=== PATIENT | male | born 1950 | race Two or more races ===

== ENCOUNTER 2019-05-10 09:00 | Outpatient (CLI) | payer MEDICARE | END 2019-05-10 23:59 | disposition home or self-care (01) | LOC: MSC 09:00 | PROVIDERS: ATTEND Anesthesiology | DX: M51.26 Other intervertebral disc displacement, lumbar region (principal); M47.27 Other spondylosis with radiculopathy, lumbosacral region; M40.299 Other kyphosis, site unspecified; M79.2 Neuralgia and neuritis, unspecified; G89.4 Chronic pain syndrome; M79.606 Pain in leg, unspecified; I10 Essential (primary) hypertension; E13.40 Other specified diabetes mellitus with diabetic neuropathy, unspecified; Z79.4 Long term (current) use of insulin; Z79.84 Long term (current) use of oral hypoglycemic drugs ==

== ENCOUNTER 2019-06-07 09:15 | Outpatient (CLI) | payer MEDICARE | END 2019-06-07 23:59 | disposition home or self-care (01) | LOC: MSC 09:15 | PROVIDERS: ATTEND Anesthesiology | DX: M51.26 Other intervertebral disc displacement, lumbar region (principal); M47.27 Other spondylosis with radiculopathy, lumbosacral region; M40.299 Other kyphosis, site unspecified; G89.4 Chronic pain syndrome; M79.606 Pain in leg, unspecified; M79.2 Neuralgia and neuritis, unspecified; I10 Essential (primary) hypertension; E11.40 Type 2 diabetes mellitus with diabetic neuropathy, unspecified; Z79.84 Long term (current) use of oral hypoglycemic drugs; Z79.4 Long term (current) use of insulin; E78.5 Hyperlipidemia, unspecified; Z79.899 Other long term (current) drug therapy ==

== ENCOUNTER → 2019-07-05 | Outpatient (CLI) | payer MEDICARE | END | disposition home or self-care (01) | LOC: MSC 09:50 | PROVIDERS: ATTEND Anesthesiology | DX: M51.26 Other intervertebral disc displacement, lumbar region (principal); M47.27 Other spondylosis with radiculopathy, lumbosacral region; M40.299 Other kyphosis, site unspecified; M79.2 Neuralgia and neuritis, unspecified; G89.4 Chronic pain syndrome; M79.606 Pain in leg, unspecified; Z79.899 Other long term (current) drug therapy ==